=== PATIENT | male | born 1950 | race Caucasian/White ===

== ENCOUNTER 2023-11-24 14:15 | Emergency (ER) | payer MEDICARE ==
[~2023-11-24] VITALS: Ht 165.1 cm; Wt 64.4 kg
[2023-11-24 15:42] VITALS: BP 145/88
[2023-11-24 16:00] VITALS: BP 136/85
[2023-11-24] MEDS ORDERED: METHOCARBAMOL500 MG PO (17:11)
[2023-11-24 17:12] VITALS: BP 136/85
[2023-11-24] MEDS ORDERED: MEDDOSEPAK PO (17:12)
== END 2023-11-24 17:46 | disposition home or self-care (01) ==
LOC: ED 14:15
DX: S20.212A Contusion of left front wall of thorax, initial encounter (principal); E11.9 Type 2 diabetes mellitus without complications; I25.2 Old myocardial infarction; W01.0XXA Fall on same level from slipping, tripping and stumbling without subsequent striking against object, initial encounter; Z95.5 Presence of coronary angioplasty implant and graft

== ENCOUNTER 2024-12-04 14:03 | Observation (INO) | payer MEDICARE ==
[~2024-12-04] VITALS: Ht 165.1 cm; Wt 67.0 kg
[2024-12-04] VITALS (26 sets, daily range): BP systolic 89–147; BP diastolic 50–85
[~2024-12-04 14:03] MED LIST: MEDDOSEPAK PO; METHOCARBAMOL500 MG PO
[2024-12-04] MEDS ORDERED: ASPIRIN 81 MG/TAB PO ONE (14:10)
[2024-12-04] MEDS ORDERED: NITROGLYCERIN 0.4 MG/TAB SL ONE (14:15)
[2024-12-04 14:26] LABS: BASO% 0.9 % (0-3); EOS% 6.8 % (0-8); HEMATOCRIT 47.2 % (39.0-50.0); HEMOGLOBIN 15.4 g/dl (14.0-18.0); IMMATURE GRANULOCYTES 0.1 % (0.0-5.0); LYMPH% 23.9 % (15-41); MEAN CELL VOLUME 92.7 fL CALC (80.0-100.0); MEAN CORPUSCULAR HGB 30.3 pG CALC (26.0-32.0); MEAN CORPUSCULAR HGB CONC 32.6 g/dL CAL (32.0-36.0); MONO% 7.9 % (2-13); NEUT# 5.97 thou/uL (1.82-7.42); NEUT% 60.4 % (42-76); RED BLOOD COUNT 5.09 mill/uL (4.70-6.10); RED CELL DISTRI WIDTH 11.6 % (11.5-15.5)
[2024-12-04 14:36] LABS: ALBUMIN 4.5 g/dL (3.2-5.0); ALKALINE PHOSPHATASE 80 u/l (38-126); ANION GAP 15 (6-22 (CALC)); BILIRUBIN, TOTAL 0.9 mg/dL (0.2-1.3); BUN 24 mg/dL (8-23); BUN/CREATININE RATIO 24 (12-20 (CALC)); CARBON DIOXIDE 28 mmol/l (22-30); CHLORIDE 100 mmol/l (95-108); ESTIMATED GFR 78 ML/MIN (>=90 (CALC)); LIPASE 45 u/l (23-300); POTASSIUM 4.2 mmol/l (3.5-5.1); SGOT/AST 38 u/l (19-48); SODIUM 139 mmol/l (137-146); TOTAL PROTEIN 7.6 g/dL (6.3-8.2)
[2024-12-04 15:37] LABS: URINE BILIRUBIN - DIPSTICK Negative (NEGATIVE); URINE BLOOD DIPSTICK Negative (NEGATIVE); URINE GLUCOSE - DIPSTICK 500 mg/dL (NEGATIVE); URINE KETONE Negative (NEGATIVE); URINE LEUK ESTERASE Negative (NEGATIVE); URINE NITRITE - DIPSTICK Negative (Negative); URINE PROTEIN - DIPSTICK Negative (NEG-TRACE); URINE SPECIFIC GRAVITY 1.015; URINE UROBILINOGEN - DIPSTICK 0.2 E.U./dL (0.2)
[2024-12-04 15:40] LABS: URINE COLOR Yellow
[2024-12-04] MEDS ORDERED: LEVOTHYROXIN137 MCG PO (18:14)
[2024-12-04] MEDS ORDERED: MECLIZINE HYDRO25 M1 (18:14)
[2024-12-04] MEDS ORDERED: JARDIANCE25 MG (18:15)
[2024-12-04] MEDS ORDERED: ATORVASTATIN CA10 MG PO (18:15)
[2024-12-04] MEDS ORDERED: FINASTERIDE5 MG PO (18:16)
[2024-12-04] MEDS ORDERED: TOPROL XL25 MG PO (18:16)
[2024-12-04] MEDS ORDERED: OZEMPIC 8 MG/3M1 INJ (18:16)
[2024-12-04] MEDS ORDERED: ASPIRINCHW 81MG PO (18:17)
[2024-12-04] MEDS ORDERED: DEXTROSE 250 ML IV PRN (19:05)
[2024-12-04] MEDS ORDERED: MAGNESIUM HYDROXIDE 30 ML UDC PO PRN (19:05)
[2024-12-04] MEDS ORDERED: Zaleplon 5 MG/CAP PO PRN (19:05)
[2024-12-04] MEDS ORDERED: ACETAMINOPHEN 325 MG/TAB PO PRN (19:05)
[2024-12-04] MEDS ORDERED: INSULIN LISPRO 100 UNITS/ML ML SC SCH (21:00)
[2024-12-04] MEDS ORDERED: ENOXAPARIN SODIUM 40 MG/0.4 ML SYR SC SCH (21:00)
[2024-12-04] MEDS ORDERED: ATORVASTATIN CALCIUM 10 MG/TAB PO SCH (21:00)
[2024-12-04] MEDS ORDERED: ASPIRIN 81 MG/TAB PO SCH (22:49)
[2024-12-04] MEDS ORDERED: METOPROLOL SUCCINATE 25 MG/TAB-TOPROL XL PO SCH (22:50)
[2024-12-04] MEDS ORDERED: FINASTERIDE 5 MG/TAB PO SCH (22:50)
[2024-12-05 05:17] VITALS: BP 100/55
[2024-12-05 05:45] LABS: CHOLESTEROL HDL RATIO 2.5 (<4.4 (CALC)); MAGNESIUM 2.2 mg/dL (1.6-2.3)
[2024-12-05 05:58] VITALS: BP 95/57
[2024-12-05] MEDS ORDERED: LEVOTHYROXINE SODIUM 112 MCG/TAB PO SCH (06:00)
[2024-12-05] MEDS ORDERED: LEVOTHYROXINE SODIUM 25 MCG/TAB PO SCH (06:00)
[2024-12-05 07:03] VITALS: BP 100/61
[2024-12-05] MEDS ORDERED: METOPROLOL SUCCINATE 25 MG/TAB-TOPROL XL PO SCH (09:00)
[2024-12-05] MEDS ORDERED: ASPIRIN 81 MG/TAB PO SCH (09:00)
[2024-12-05] MEDS ORDERED: FINASTERIDE 5 MG/TAB PO SCH (09:00)
[2024-12-05] MEDS ORDERED: NITROSTAT0.4 MG SL (10:23)
[2024-12-05 10:44] VITALS: BP 97/48
== END 2024-12-05 11:33 | disposition home or self-care (01) ==
LOC: ED 14:03 → ED-I 16:37 → ED 17:49 → MS2 17:50
PROVIDERS: Nurse Practitioner; ADMIT Internal Medicine; ATTEND Internal Medicine
DX: R07.9 Chest pain, unspecified (principal); I25.10 Atherosclerotic heart disease of native coronary artery without angina pectoris; I10 Essential (primary) hypertension; E78.5 Hyperlipidemia, unspecified; E11.9 Type 2 diabetes mellitus without complications; I25.2 Old myocardial infarction; Z95.5 Presence of coronary angioplasty implant and graft; E03.9 Hypothyroidism, unspecified
CPT/HCPCS: G0378; J1650